=== PATIENT | male | born 1990 | race Caucasian/White ===

== ENCOUNTER 2018-02-06 18:19 | Inpatient (IN) | payer BC ==
[~2018-02-06] VITALS: Ht 175.3 cm; Wt 73.5 kg
[2018-02-06 18:26] VITALS: Ht 175.3 cm; Wt 73.5 kg
[2018-02-06 20:46] LABS: UA SPECIFIC GRAVITY <=1.005 (1.005-1.035); microscopic required? YES; urine erythrocyte 3+ (NEGATIVE)
[2018-02-06 20:47] LABS: CALCIUM 8.7 mg/dL (8.5-10.1); CARBON DIOXIDE 26.8 mmol/L (21-32); CHLORIDE SERUM 102 mmol/L (98-107); CREATININE SERUM 0.9 mg/dL (0.7-1.3); GFR1 > 60 mL/min; GLUCOSE SERUM 103 mg/dL (74-106); POTASSIUM SERUM 3.2 mmol/L (3.5-5.1); SODIUM SERUM 140 mmol/L (136-145)
[2018-02-06 20:49] LABS: BASOPHIL % 0.3 % (0-2); PLATELET COUNT 235 x10^3mcL (130-400); RED CELL DISTRIBUTION WIDTH 13.2 % (11.5-14.5)
[2018-02-06 20:52] LABS: ALBUMIN 4.3 g/dL (3.4-5.0); ALKALINE PHOSPHATASE 91 U/L (46-116); ALT/SGPT 36 U/L (16-63); AMYLASE 56 U/L (25-115); AST/SGOT 20 U/L (15-37); BILIRUBIN TOTAL 0.5 mg/dL (0.20-1.00); LIPASE 115 IU/L (73-393); TOTAL PROTEIN, SERUM 8.1 g/dL (6.4-8.2)
[2018-02-06 20:59] LABS: AMPHETAMINE QUAL UR NONE DETECTED (See below)
[2018-02-07 01:22] VITALS: BP 135/85
[2018-02-07 04:45] VITALS: BP 131/63
[2018-02-07 09:11] VITALS: BP 117/69
[2018-02-07 13:06] VITALS: BP 128/78
[2018-02-07 16:52] VITALS: BP 115/69
[2018-02-07 21:05] VITALS: BP 115/68
[2018-02-08 04:15] LABS: RAPID PLASMA REAGIN Non Reactive (Non Reactive)
[2018-02-08 05:21] VITALS: BP 100/54
[2018-02-08 05:57] LABS: BASOPHIL % 0.4 % (0-2); PLATELET COUNT 223 x10^3mcL (130-400); RED CELL DISTRIBUTION WIDTH 13.1 % (11.5-14.5)
[2018-02-08 06:28] LABS: CALCIUM 8.9 mg/dL (8.5-10.1); CHLORIDE SERUM 107 mmol/L (98-107); GFR1 > 60 mL/min; GLUCOSE SERUM 83 mg/dL (74-106); PHOSPHOROUS 3.5 mg/dL (2.5-4.9); POTASSIUM SERUM 3.7 mmol/L (3.5-5.1); SODIUM SERUM 144 mmol/L (136-145)
[2018-02-08 13:06] VITALS: BP 111/71
[2018-02-08 14:30] VITALS: BP 111/71
[2018-02-08] MEDS ORDERED: COL100 PO (15:18)
== END 2018-02-08 17:08 | disposition home or self-care (01) | DRG 395 ==
LOC: ED 18:19 → DU 23:31
PROVIDERS: Emergency Medicine; Family Medicine; Internal Medicine Gastroenterology
PROC: 0DBP8ZZ Excision of Rectum, Via Natural or Artificial Opening Endoscopic (ICD-10-PCS; principal; 2018-02-08 07:30)
DX: K64.9 Unspecified hemorrhoids (principal); R31.9 Hematuria, unspecified; E87.6 Hypokalemia; N46.12 Oligospermia due to extratesticular causes; N42.83 Cyst of prostate; Z83.71 Family history of colonic polyps; K62.1 Rectal polyp
CPT/HCPCS: 45378; 83880; 87491; 87591; G0480; J1200; J1610; J2250; J2310; J3010; J3490; J7030; Q9967